=== PATIENT | male | born 1995 | race African-American/Black ===

== ENCOUNTER 2017-11-28 08:14 | Emergency (ER) | payer OTHER, SELFPAY ==
[2017-11-28 08:55] LABS: #Eosinphils 0.7 thou/uL (0.0-0.7); #Lymphocytes 2.7 thou/uL (1.20-3.40); #Monocytes 0.7 thou/uL (0.11-0.59); #Neutrophils 3.7 thou/uL (1.40-6.50); %Basophils 0.4 % (0.0-1.0); %Eosinophils 9.4 % (0.0-10.0); %Monocytes 8.6 % (0.0-10.0); %Neutrophils 47.6 % (42.0-75.0); Hemoglobin 15.3 g/dL (14.0-18.0); Mean Corpuscular Volume 88.4 fL (78.0-98.0); Mean Platelet Volume 6.8 fL (7.4-10.4); Platelet Count 305 thou/uL (130-400); RBC Distribution Width 11.6 % (11.5-14.5); Red Blood Cell (RBC) Count 5.09 mill/uL (4.70-6.10); White Blood Cell (WBC) Count 7.8 thou/uL (4.8-10.8)
[2017-11-28 08:58] LABS: ALT (SGPT) 17 U/L (8-55); AST (SGOT) 15 U/L (5-34); Albumin 4.4 g/dL (3.5-5.0); Alkaline Phosphatase 66 U/L (40-150); Anion Gap 13 mmol/L (10-20); BUN (Urea Nitrogen) 17 mg/dL (8.9-20.6); Bilirubin, Total 0.6 mg/dL (0.2-1.2); Calc. Creatinine Clearance 0 mL/min (70-130); Calcium 9.8 mg/dL (7.8-10.44); Carbon Dioxide 25 mmol/L (22-29); Chloride 104 mmol/L (98-107); Estimated GFR-MDRD Greater than 90; Glucose 95 mg/dL (70-105); Lipase 78 U/L (8-78); Potassium 4.1 mmol/L (3.5-5.1); Protein, Total 7.4 g/dL (6.0-8.3); Sodium 138 mmol/L (136-145)
[2017-11-28 09:14] LABS: Bilirubin Negative (Negative); Blood, Urine Negative (Negative); Clarity CLEAR (Clear); Glucose, Urine (Dipstick) Negative (Negative); Leukocyte Negative (Negative); Nitrite Negative (Negative); Protein, Urine (Dipstick) Negative (Neg-Trace); Specific Gravity, Urine 1.027 (1.002-1.036)
[2017-11-28] MEDS ORDERED: Mag-Al 1200 mg/1200 mg/30 ML UDCUP ONE (09:52)
[2017-11-28] MEDS ORDERED: Lidocaine Viscous Sol 2% 15 ml UD Cup ONE (09:52)
[2017-11-28] MEDS ORDERED: Famotidine 20 MG TAB ONE (09:52)
== END 2017-11-28 09:59 | disposition home or self-care (01) ==
LOC: ERS 08:14
DX: K21.9 Gastro-esophageal reflux disease without esophagitis (principal)
CPT/HCPCS: 36415; 80053; 81003; 83690; 85025; 99284

== ENCOUNTER 2017-12-28 09:42 | Emergency (ER) | payer SELFPAY ==
[2017-12-28 10:19] LABS: Bilirubin Negative (Negative); Blood, Urine Negative (Negative); Clarity CLEAR (Clear); Glucose, Urine (Dipstick) Negative (Negative); Leukocyte Moderate (Negative); Nitrite Negative (Negative); Protein, Urine (Dipstick) Negative (Neg-Trace); Specific Gravity, Urine 1.024 (1.002-1.036); Urobilinogen 0.2 mg/dL (0.2-1.0)
[2017-12-28 10:21] LABS: Bacteria/HPF None Seen HPF (None Seen); Pathc Cast-AUWi Flag 0.72 (0-2.49); RBC/HPF 0-3 HPF (0-3); Squamous Epithelial 0-3 HPF (0-3)
[2017-12-28 10:36] LABS: Hyaline Casts/LPF 0-3 HYALINE CAST LPF (0-3 Hyaline)
[2017-12-28] MEDS ORDERED: cefTRIAXone\\ROCEPHIN 250 MG VIAL ONE (11:09)
[2017-12-28] MEDS ORDERED: Lidocaine 1% PF 5 ML VIAL ONE (11:10)
[2017-12-28] MEDS ORDERED: Azithromycin 250 MG TAB ONE (11:12)
[2017-12-28 22:57] LABS: Chlamydia by PCR Not Detected (NotDetected); GC by PCR Not Detected (NotDetected)
== END 2017-12-28 11:00 | disposition home or self-care (01) ==
LOC: ERS 09:42
DX: A64 Unspecified sexually transmitted disease (principal); J45.909 Unspecified asthma, uncomplicated; F90.9 Attention-deficit hyperactivity disorder, unspecified type
CPT/HCPCS: 81003; 81015; 87491; 87591; 96372; J0696; J2001

== ENCOUNTER 2017-12-31 10:18 | Emergency (ER) | payer SELFPAY ==
[2017-12-31 11:31] LABS: Bilirubin Negative (Negative); Blood, Urine Negative (Negative); Clarity CLOUDY (Clear); Glucose, Urine (Dipstick) Negative (Negative); Leukocyte Small (Negative); Nitrite Negative (Negative); Protein, Urine (Dipstick) Trace mg/dL (Neg-Trace); Specific Gravity, Urine 1.025 (1.002-1.036)
[2017-12-31 11:34] LABS: Bacteria/HPF None Seen HPF (None Seen); Pathc Cast-AUWi Flag 0.29 (0-2.49); RBC/HPF 0-3 HPF (0-3); Squamous Epithelial 0-3 HPF (0-3)
[2017-12-31 11:40] LABS: Hyaline Casts/LPF 0-3 HYALINE CAST LPF (0-3 Hyaline)
[2018-01-02 03:52] LABS: Chlamydia by PCR Not Detected (NotDetected); GC by PCR Not Detected (NotDetected)
== END 2017-12-31 11:45 | disposition home or self-care (01) ==
LOC: ERS 10:18
DX: N34.2 Other urethritis (principal); J45.909 Unspecified asthma, uncomplicated; F90.9 Attention-deficit hyperactivity disorder, unspecified type
CPT/HCPCS: 81003; 81015; 87086; 87491; 87591; 99283

== ENCOUNTER 2018-02-17 15:52 | Emergency (ER) | payer SELFPAY ==
[2018-02-17] MEDS ORDERED: Dexamethasone 4 mg/ml Vial ONE (16:13)
[2018-02-17] MEDS ORDERED: Ibuprofen 100 MG/5 ML UDCUP ONE (16:57)
== END 2018-02-17 17:03 | disposition home or self-care (01) ==
LOC: ERS 15:52
DX: J04.0 Acute laryngitis (principal); J02.9 Acute pharyngitis, unspecified; J45.909 Unspecified asthma, uncomplicated
CPT/HCPCS: 87081; 87430; 99283; J1100

== ENCOUNTER 2018-06-13 11:57 | Emergency (ER) | payer SELFPAY | END 2018-06-13 13:25 | disposition home or self-care (01) | LOC: ERS 11:57 | DX: B36.0 Pityriasis versicolor (principal); F90.9 Attention-deficit hyperactivity disorder, unspecified type; J45.909 Unspecified asthma, uncomplicated | CPT/HCPCS: 99281 ==

== ENCOUNTER 2018-07-14 17:26 | Emergency (ER) | payer SELFPAY | END 2018-07-14 17:57 | disposition home or self-care (01) | LOC: ERS 17:26 | DX: K62.89 Other specified diseases of anus and rectum (principal); J45.909 Unspecified asthma, uncomplicated; F90.9 Attention-deficit hyperactivity disorder, unspecified type | CPT/HCPCS: 99282 ==

== ENCOUNTER 2018-07-26 23:13 | Emergency (ER) | payer SELFPAY ==
[2018-07-26 23:58] LABS: Bilirubin Negative (Negative); Blood, Urine Negative (Negative); Clarity CLEAR (Clear); Glucose, Urine (Dipstick) Negative (Negative); Leukocyte Negative (Negative); Nitrite Negative (Negative); Protein, Urine (Dipstick) Negative (Neg-Trace); Specific Gravity, Urine 1.005 (1.002-1.036); pH, Urine 6.5 (5.0-9.0)
[2018-07-27 00:12] LABS: #Basophils 0.1 thou/uL (0.0-0.2); #Eosinphils 0.4 thou/uL (0.0-0.7); #Lymphocytes 1.9 thou/uL (1.20-3.40); #Monocytes 1.2 thou/uL (0.11-0.59); %Basophils 0.5 % (0.0-1.0); %Eosinophils 2.9 % (0.0-10.0); %Monocytes 9.5 % (0.0-10.0); %Neutrophils 72.1 % (42.0-75.0); Hemoglobin 16.3 g/dL (14.0-18.0); Mean Corpuscular HGB CONC 33.4 g/dL (32.0-36.0); Mean Corpuscular Hemoglobin 29.9 pg (27.0-31.0); Mean Corpuscular Volume 89.6 fL (78.0-98.0); Mean Platelet Volume 7.6 fL (7.4-10.4); Platelet Count 243 thou/uL (130-400); RBC Distribution Width 11.6 % (11.5-14.5); Red Blood Cell (RBC) Count 5.46 mill/uL (4.70-6.10); White Blood Cell (WBC) Count 12.5 thou/uL (4.8-10.8)
[2018-07-27 00:30] LABS: ALT (SGPT) 25 U/L (8-55); AST (SGOT) 28 U/L (5-34); Albumin 4.3 g/dL (3.5-5.0); Alkaline Phosphatase 77 U/L (40-150); Anion Gap 13 mmol/L (10-20); BUN (Urea Nitrogen) 16 mg/dL (8.9-20.6); Bilirubin, Total 0.7 mg/dL (0.2-1.2); Calc. Creatinine Clearance 0 mL/min (70-130); Calcium 9.8 mg/dL (7.8-10.44); Carbon Dioxide 24 mmol/L (22-29); Chloride 105 mmol/L (98-107); Estimated GFR-MDRD 80; Glucose 90 mg/dL (70-105); Potassium 4.2 mmol/L (3.5-5.1); Protein, Total 7.3 g/dL (6.0-8.3); Sodium 138 mmol/L (136-145)
[2018-07-27] MEDS ORDERED: Ibuprofen 200 MG TAB ONE (03:13)
[2018-07-27] MEDS ORDERED: Ondansetron ODT 4 MG TAB ONE (03:13)
== END 2018-07-27 03:58 | disposition home or self-care (01) ==
LOC: ERS 23:13
DX: A63.0 Anogenital (venereal) warts (principal); R11.2 Nausea with vomiting, unspecified; F90.9 Attention-deficit hyperactivity disorder, unspecified type; J45.909 Unspecified asthma, uncomplicated
CPT/HCPCS: 36415; 80053; 81003; 85025; 99284; Q0162

== ENCOUNTER 2018-10-28 07:36 | Emergency (ER) | payer SELFPAY ==
--- NOTE | 2018-10-28 08:22 | RAD ---
EXAM: CHEST ONE VIEW HISTORY: Asthma exacerbation COMPARISON: None FINDINGS: The cardiac silhouette and pulmonary vasculature is within normal limits. The lungs are clear. The os seous structures are intact. There is radiopaque tubing overlying the right chest. IMPRESSION: No acute cardiopulmonary process.
[2018-10-28 08:38] LABS: #Basophils 0.2 thou/uL (0.0-0.2); #Eosinphils 0.6 thou/uL (0.0-0.7); #Lymphocytes 3.7 thou/uL (1.20-3.40); #Monocytes 0.9 thou/uL (0.11-0.59); #Neutrophils 3.2 thou/uL (1.40-6.50); %Basophils 2.3 % (0.0-1.0); %Eosinophils 6.8 % (0.0-10.0); %Lymphocytes 43.3 % (21.0-51.0); %Monocytes 10.8 % (0.0-10.0); %Neutrophils 36.8 % (42.0-75.0); Hemoglobin 16.1 g/dL (14.0-18.0); Mean Corpuscular Hemoglobin 30.2 pg (27.0-31.0); Mean Corpuscular Volume 88.9 fL (78.0-98.0); Platelet Count 223 thou/uL (130-400); RBC Distribution Width 11.6 % (11.5-14.5); Red Blood Cell (RBC) Count 5.32 mill/uL (4.70-6.10); White Blood Cell (WBC) Count 8.6 thou/uL (4.8-10.8)
[2018-10-28 09:02] LABS: ALT (SGPT) 11 U/L (8-55); AST (SGOT) 16 U/L (5-34); Albumin 4.3 g/dL (3.5-5.0); Alkaline Phosphatase 64 U/L (40-150); Anion Gap 13 mmol/L (10-20); BUN (Urea Nitrogen) 19 mg/dL (8.9-20.6); Bilirubin, Total 0.5 mg/dL (0.2-1.2); Calc. Creatinine Clearance 0 mL/min (70-130); Calcium 10.1 mg/dL (7.8-10.44); Carbon Dioxide 27 mmol/L (22-29); Chloride 104 mmol/L (98-107); Estimated GFR-MDRD 80; Globulin 2.6 g/dL (2.4-3.5); Glucose 91 mg/dL (70-105); Lipase 90 U/L (8-78); Potassium 3.5 mmol/L (3.5-5.1); Protein, Total 6.9 g/dL (6.0-8.3); Sodium 140 mmol/L (136-145)
[2018-10-28 09:23] LABS: Bilirubin Negative (Negative); Blood, Urine Negative (Negative); Clarity Clear (Clear); Glucose, Urine (Dipstick) Normal (Negative); Leukocyte Negative Leu/uL (Negative); Nitrite Negative (Negative); Protein, Urine (Dipstick) Negative (Neg-Trace)
== END 2018-10-28 09:57 | disposition home or self-care (01) ==
LOC: ERS 07:36
DX: J45.901 Unspecified asthma with (acute) exacerbation (principal); R10.12 Left upper quadrant pain; F90.9 Attention-deficit hyperactivity disorder, unspecified type
CPT/HCPCS: 36415; 71045; 80053; 81003; 83690; 85025; 94640; J7620

== ENCOUNTER 2019-01-05 02:37 | Emergency (ER) | payer SELFPAY ==
[2019-01-05] MEDS ORDERED: Albuterol Sulfate 2.5 mg/0.5 ml Neb ONE ×2 (03:16)
== END 2019-01-05 03:45 | disposition home or self-care (01) ==
LOC: ERS 02:37
DX: J45.901 Unspecified asthma with (acute) exacerbation (principal)
CPT/HCPCS: 94760; J7611; J7620

== ENCOUNTER 2019-02-04 15:38 | Emergency (ER) | payer SELFPAY ==
[2019-02-04] MEDS ORDERED: Ondansetron ODT 4 MG TAB ONE (17:03)
[2019-02-04] MEDS ORDERED: Bicillin LA 1.2 MILLION UNITS/2 ML SYRINGE ONE (17:05)
== END 2019-02-04 17:30 | disposition home or self-care (01) ==
LOC: ERS 15:38
DX: J02.0 Streptococcal pharyngitis (principal); J45.909 Unspecified asthma, uncomplicated; R11.2 Nausea with vomiting, unspecified; F90.9 Attention-deficit hyperactivity disorder, unspecified type; Z79.51 Long term (current) use of inhaled steroids
CPT/HCPCS: 87430; 87804; 94640; 96372; J0561; J7620; Q0162

== ENCOUNTER 2019-05-05 14:02 | Observation (INO) | payer OTHER, SELFPAY ==
[2019-05-05 14:42] LABS: #Basophils 0.1 thou/uL (0.0-0.2); #Eosinphils 0.4 thou/uL (0.0-0.7); #Lymphocytes 3.4 thou/uL (1.20-3.40); #Monocytes 0.7 thou/uL (0.11-0.59); #Neutrophils 4.2 thou/uL (1.40-6.50); %Basophils 0.6 % (0.0-1.0); %Eosinophils 4.9 % (0.0-10.0); %Lymphocytes 38.2 % (21.0-51.0); %Monocytes 8.4 % (0.0-10.0); %Neutrophils 47.9 % (42.0-75.0); Hemoglobin 15.8 g/dL (14.0-18.0); Mean Corpuscular HGB CONC 33.3 g/dL (32.0-36.0); Mean Corpuscular Hemoglobin 30.2 pg (27.0-31.0); Mean Corpuscular Volume 90.7 fL (78.0-98.0); Mean Platelet Volume 7.9 fL (7.4-10.4); Platelet Count 223 thou/uL (130-400); RBC Distribution Width 12.1 % (11.5-14.5); Red Blood Cell (RBC) Count 5.22 mill/uL (4.70-6.10); White Blood Cell (WBC) Count 8.8 thou/uL (4.8-10.8)
[2019-05-05] MEDS ORDERED: Iopamidol-370 76% 500 ML 1 ML ONE (14:48)
[2019-05-05 15:06] LABS: ALT (SGPT) 19 U/L (8-55); AST (SGOT) 18 U/L (5-34); Albumin 4.3 g/dL (3.5-5.0); Alkaline Phosphatase 53 U/L (40-110); Anion Gap 10 mmol/L (10-20); BUN (Urea Nitrogen) 10 mg/dL (8.9-20.6); Bilirubin, Total 0.7 mg/dL (0.2-1.2); Calc. Creatinine Clearance 0 mL/min (70-130); Calcium 9.1 mg/dL (7.8-10.44); Carbon Dioxide 26 mmol/L (22-29); Chloride 106 mmol/L (98-107); Estimated GFR-MDRD 79; Globulin 2.4 g/dL (2.4-3.5); Glucose 96 mg/dL (70-105); Lipase 260 U/L (8-78); Potassium 4.1 mmol/L (3.5-5.1); Protein, Total 6.7 g/dL (6.0-8.3); Sodium 138 mmol/L (136-145)
[2019-05-05 15:06] LABS: Bilirubin Negative (Negative); Blood, Urine Negative (Negative); Clarity Clear (Clear); Glucose, Urine (Dipstick) Normal (Negative); Leukocyte Negative Leu/uL (Negative); Nitrite Negative (Negative); Protein, Urine (Dipstick) Negative (Neg-Trace); Urobilinogen Normal mg/dL (Less than 2)
[2019-05-05] MEDS ORDERED: Ondansetron PF 4 MG/2 ML Vial ONE (16:52)
[2019-05-05] MEDS ORDERED: Morphine 4 MG/ML VIAL ONE (16:52)
--- NOTE | 2019-05-05 17:38 | CT ---
CT ABDOMEN AND PELVIS WITH IV CONTRAST: 05/05/19 HISTORY: Epigastric pain, abdominal pain. No comparison. The lung bases are clear. Liver, spleen, and pancreas unremarkable. Adrenal glands and kidneys unremarkable. Small bowel loops normal caliber. The appendix appears unremarkable. Prominent stool throughout the c olon. Urinary bladder mildly distended but otherwise unremarkable. No adenopathy, mass, or free fluid . IMPRESSION: No acute abnormality identified. POS: TPC
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
[2019-05-05 20:03] VITALS: BMI 25.9
[2019-05-05] MEDS ORDERED: HYDROcodone/Acetaminophen 5/325 mg Tablet PO PRN ×2 (20:05)
[2019-05-05] MEDS ORDERED: Morphine 4 MG/ML VIAL SLOW IVP PRN (20:05)
[2019-05-05] MEDS ORDERED: Acetaminophen 325 MG TAB PO PRN (20:05)
[2019-05-05] MEDS ORDERED: Ondansetron PF 4 MG/2 ML Vial IVP PRN (20:05)
[2019-05-05] MEDS ORDERED: Ondansetron ODT 4 MG TAB SL PRN (20:05)
[2019-05-05] MEDS: Sodium Chloride 0.9% 1,000 ML IV SCH (20:23)
[2019-05-05] MEDS ORDERED: Morphine 2 MG/ML SYRINGE SLOW IVP PRN (20:40)
--- NOTE | 2019-05-05 22:13 | ULT ---
US Gallbladder RUQ HISTORY: Abdominal pain. Pancreatitis. COMPARISON: CT examination done earlier today. FINDINGS: Real-time imaging of the right upper quadrant shows a normal-appearing gallbladder. The com mon duct is normal in caliber at 3 mm. The liver measures 15 cm in length. Pancreas is obscured. Right kidney is normal in size and not obstructed. IMPRESSION: Unremarkable right upper quadrant ultrasound.
[2019-05-06 00:07] LABS: HIV (1/2) Antibody/Antigen Non-Reactive (NonReactive); HIV 1/2 INDEX 0.08 S/CO (<1.00)
[2019-05-06] MEDS: Sodium Chloride 0.9% 1,000 ML IV SCH (00:54)
[2019-05-06] MEDS: Lactated Ringer's 1,000 ML IV SCH ×2 (04:45→08:25)
[2019-05-06 05:50] LABS: #Basophils 0.1 thou/uL (0.0-0.2); #Eosinphils 0.5 thou/uL (0.0-0.7); #Monocytes 0.9 thou/uL (0.11-0.59); #Neutrophils 3.4 thou/uL (1.40-6.50); %Basophils 0.9 % (0.0-1.0); %Eosinophils 5.9 % (0.0-10.0); %Lymphocytes 38.1 % (21.0-51.0); %Monocytes 11.2 % (0.0-10.0); %Neutrophils 43.9 % (42.0-75.0); Hemoglobin 14.9 g/dL (14.0-18.0); Mean Corpuscular HGB CONC 32.4 g/dL (32.0-36.0); Mean Corpuscular Hemoglobin 29.5 pg (27.0-31.0); Mean Corpuscular Volume 91.1 fL (78.0-98.0); Platelet Count 208 thou/uL (130-400); RBC Distribution Width 11.9 % (11.5-14.5); Red Blood Cell (RBC) Count 5.03 mill/uL (4.70-6.10); White Blood Cell (WBC) Count 7.8 thou/uL (4.8-10.8)
[2019-05-06 06:17] LABS: ALT (SGPT) 16 U/L (8-55); AST (SGOT) 15 U/L (5-34); Albumin 3.6 g/dL (3.5-5.0); Alkaline Phosphatase 45 U/L (40-110); Anion Gap 6 mmol/L (10-20); BUN (Urea Nitrogen) 8 mg/dL (8.9-20.6); Bilirubin, Total 0.7 mg/dL (0.2-1.2); Calc. Creatinine Clearance 124 mL/min (70-130); Calcium 8.2 mg/dL (7.8-10.44); Carbon Dioxide 28 mmol/L (22-29); Cardiac Risk 3.6 (Less than 4.5); Chloride 109 mmol/L (98-107); Cholesterol 143 mg/dl (< 200 Desired); Estimated GFR-MDRD 88; Globulin 2.2 g/dL (2.4-3.5); Glucose 84 mg/dL (70-105); HDL Cholesterol 40 mg/dL (>60 Neg Risk); LDL Cholesterol, Calculated 85 mg/dL; Potassium 4.1 mmol/L (3.5-5.1); Protein, Total 5.8 g/dL (6.0-8.3); Sodium 139 mmol/L (136-145); Triglycerides 88 mg/dL (Less than 150)
[2019-05-06] MEDS ORDERED: Albuterol Sulfate 1.25 MG/3 ML NEB NEB PRN (06:31)
--- NOTE | 2019-05-06 06:32 | PDOC.FM ---
- Subjective Subjective: Feeling better this morning, abdominal pain has decreased but still present. No BM since admission, >2wks total. Denies any alcohol use prior to admission. Tolerating clear liquids. - Objective MAR Reviewed: Yes Vital Signs & Weight: Vital Signs (12 hours) Temp Pulse Resp BP Pulse Ox 05/05/19 20:02 97.7 F 67 20 117/59 L 98 Weight Weight 94.256 kg I&O: 05/04/19 05/05/19 05/06/19 06:59 06:59 06:59 Intake Total 1706 Balance 1706 Result Diagrams: 05/06/19 05:22 05/06/19 05:22 Phys Exam - Physical Examination Constitutional: NAD HEENT: moist MMs Neck: supple mild expiratory wheezing Cardiovascular: RRR, no significant murmur Gastrointestinal: soft Moderate epigastric pain, no rebound or rigidity Neurological: moves all 4 limbs Psychiatric: normal affect, A&O x 3 Skin: normal turgor Dx/Plan - Plan Plan: Pt is a 23 yo male with no significant PMH who presents for Pancreatitis of Unknown Etiology - RUQ, FLP nml - HIV neg - NS 200 mls/hr; could increase as uptodate states 5-10 cc/kg/hr which would put his rate at ~500 mls/hr - Advance to clear liquid diet - LDH pending, [place] score: 0 prior to LDH Constipation - Aggressive bowel regimen as pt has not had BM in 2 weeks Asthma - Albuterol PRN ADHD - No meds DVT ppx: SCDs Fluids: NS 200 mls/hr Diet: NPO Code Status: Full PCP: Dr Villanueva Addendum - Attending - Attending Attestation Date/Time: 05/06/19 1007 I personally evaluated the patient and discussed the management with Dr. New. I agree with the History, Examination, Assessment and Plan documented above with any addition or exceptions noted below. Patient exam, labs, and imaging not really consistent with pancreatitis. He is already tolerating clears. His issue may be more related to constipation. Will continue bowel regimen and see if we can provide relief. Advance diet. Continues on fluids for now. RUQ U/S normal.
[2019-05-06] MEDS ORDERED: Milk Of Magnesia 30 ML UDCUP PO PRN ×2 (07:06→07:19)
[2019-05-06] MEDS ORDERED: Milk Of Magnesia 30 ML UDCUP PO SCH (07:30)
[2019-05-06 07:35] VITALS: BP 125/73; TEMP 97.8
[2019-05-06] MEDS ORDERED: Docusate Sodium 100 MG/10 ML UDCUP PO SCH (09:00)
[2019-05-06] MEDS ORDERED: Docusate 100 MG CAP PO SCH (09:00)
[2019-05-06] MEDS ORDERED: Polyethylene Glycol 3350 17 GM Packet PO SCH (09:00)
[2019-05-06] MEDS ORDERED: FLU VACC QS2019-20(6MOS UP)/PF 60 MCG/0.5 ML SYRINGE IM ONE (09:00)
--- NOTE | 2019-05-08 12:35 | DIS ---
DATE OF ADMISSION: 05/05/2019 DATE OF DISCHARGE: 05/06/2019 PRIMARY CARE PHYSICIAN: Ramy Villanueva MD RESIDENT: Mara New MD, PGY-2. ADMITTING ATTENDING: Crow Flores MD DISCHARGE ATTENDING: Edison Lazo MD CONSULTS: None. PROCEDURES: 1. Abdomen and pelvis CT, no acute abnormality. 2. Abdomen ultrasound 05/05/2019, unremarkable right upper quadrant ultrasound. PRIMARY DIAGNOSIS: Pancreatitis of unknown etiology. SECONDARY DIAGNOSES: 1. Constipation. 2. Asthma. 3. ADHD. DISCHARGE MEDICATIONS: 1. Milk of magnesia 30 mL p.o. daily p.r.n. 2. MiraLAX 17 g p.o. daily. 3. Albuterol 8.5 g inhaled q.6 hours p.r.n. HISTORY OF PRESENT ILLNESS/HOSPITAL COURSE: Mr. Amos is a 23-year-old male with past medical history of asthma, who presented to the ED with epigastric abdominal pain. His CT was negative and his lipase was three times the upper limit of normal at 260. UA was negative. HIV negative. Liver enzymes were normal. He did have a little bit of an ANGELO 1.35, 1.24 creatinine. His Keagan score was zero. Fasting lipid panel was normal. He was made n.p.o. and started on 200 mL an hour of normal saline. He was able to titrate back to regular soft low-fat diet and be taken off normal saline. Recommend he follow up with his primary care doctor, Dr. Villanueva , to further evaluate cause of pancreatitis. He is negative for HIV, any scorpion bite, or new medication. No evidence that was caused by a stone for hypertriglyceridemia. It was thought that it was possibly mild case of pancreatitis and most of the patient's symptoms could have been due to constipation as he has not had bowel movement for greater than two weeks. He has been on aggressive bowel regimen and did have a small bowel movement prior to discharge. He is discharged with Miralax and milk of Mag. DISPOSITION: Stable. DISCHARGE INSTRUCTIONS: 1. Location: Home. 2. Diet: Low-fat, soft foods, advance as tolerated. 3. Activity: No restrictions. 4. Follow up with PCP, Dr. Villanueva within 7 days. Job ID: [id number] [facility]
== END 2019-05-06 14:40 | disposition home or self-care (01) ==
LOC: ERS 14:02 → T4-A 17:38
PROVIDERS: ADMIT Emergency Medicine; ATTEND Emergency Medicine
DX: K85.90 Acute pancreatitis without necrosis or infection, unspecified (principal); K59.00 Constipation, unspecified; J45.909 Unspecified asthma, uncomplicated; F90.9 Attention-deficit hyperactivity disorder, unspecified type
CPT/HCPCS: 36415; 74177; 76705; 80053; 80061; 81003; 83615; 83690; 85025; 87389; 96361; 96374; 96375; 96376; G0378; J2270; J2405; Q9967

== ENCOUNTER 2019-06-09 22:43 | Emergency (ER) | payer OTHER, SELFPAY ==
[2019-06-09 23:04] LABS: Bilirubin Negative (Negative); Blood, Urine Negative (Negative); Clarity Clear (Clear); Glucose, Urine (Dipstick) Normal (Negative); Leukocyte Negative Leu/uL (Negative); Nitrite Negative (Negative); Protein, Urine (Dipstick) 20 mg/dL (Neg-Trace); Urobilinogen 3 mg/dL (Less than 2)
== END 2019-06-10 00:42 | disposition home or self-care (01) ==
LOC: ERS 22:43
DX: R36.9 Urethral discharge, unspecified (principal); R30.0 Dysuria; J45.909 Unspecified asthma, uncomplicated; F90.9 Attention-deficit hyperactivity disorder, unspecified type
CPT/HCPCS: 81003; 87491; 87591; 99281

== ENCOUNTER 2019-06-20 02:43 | Emergency (ER) | payer SELFPAY ==
[2019-06-20 03:09] LABS: #Basophils 0.1 thou/uL (0.0-0.2); #Eosinphils 0.2 thou/uL (0.0-0.7); #Lymphocytes 2.6 thou/uL (1.20-3.40); #Monocytes 1.1 thou/uL (0.11-0.59); #Neutrophils 6.6 thou/uL (1.40-6.50); %Basophils 0.5 % (0.0-1.0); %Eosinophils 1.9 % (0.0-10.0); %Lymphocytes 24.6 % (21.0-51.0); Hemoglobin 16.8 g/dL (14.0-18.0); Mean Corpuscular HGB CONC 33.8 g/dL (32.0-36.0); Mean Corpuscular Hemoglobin 30.2 pg (27.0-31.0); Mean Corpuscular Volume 89.4 fL (78.0-98.0); Mean Platelet Volume 7.5 fL (7.4-10.4); Platelet Count 287 thou/uL (130-400); RBC Distribution Width 11.9 % (11.5-14.5); Red Blood Cell (RBC) Count 5.55 mill/uL (4.70-6.10); White Blood Cell (WBC) Count 10.4 thou/uL (4.8-10.8)
[2019-06-20 03:20] LABS: Bilirubin Small (Negative); Blood, Urine Negative (Negative); Clarity Slightly Cloudy (Clear); Glucose, Urine (Dipstick) Negative (Negative); Leukocyte Trace (Negative); Nitrite Negative (Negative); Protein, Urine (Dipstick) 30 mg/dL (Neg-Trace)
[2019-06-20 03:22] LABS: RBC/HPF 0-3 HPF (0-3); Squamous Epithelial 0-3 HPF (0-3); WBC/HPF 21-50 HPF (0-3)
[2019-06-20 03:23] LABS: Bacteria/HPF 1+ HPF (None Seen)
[2019-06-20 03:31] LABS: ALT (SGPT) 14 U/L (8-55); AST (SGOT) 17 U/L (5-34); Albumin 4.5 g/dL (3.5-5.0); Alkaline Phosphatase 63 U/L (40-110); Anion Gap 12 mmol/L (10-20); BUN (Urea Nitrogen) 15 mg/dL (8.9-20.6); Bilirubin, Total 0.6 mg/dL (0.2-1.2); Calc. Creatinine Clearance 0 mL/min (70-130); Calcium 9.5 mg/dL (7.8-10.44); Carbon Dioxide 24 mmol/L (22-29); Chloride 107 mmol/L (98-107); Estimated GFR-MDRD 79; Globulin 2.9 g/dL (2.4-3.5); Glucose 134 mg/dL (70-105); Lipase 151 U/L (8-78); Potassium 3.4 mmol/L (3.5-5.1); Protein, Total 7.4 g/dL (6.0-8.3); Sodium 140 mmol/L (136-145)
[2019-06-20] MEDS ORDERED: cefTRIAXone\\ROCEPHIN 250 MG VIAL ONE (05:00)
[2019-06-20] MEDS ORDERED: Azithromycin 250 MG TAB ONE ×2 (05:00→05:06)
[2019-06-22 00:54] LABS: Chlam.trachomatis by PCR,Urine Not Detected (NotDetected)
== END 2019-06-20 05:25 | disposition home or self-care (01) ==
LOC: ERS 02:43
DX: N34.2 Other urethritis (principal); F90.9 Attention-deficit hyperactivity disorder, unspecified type
CPT/HCPCS: 36415; 80053; 81003; 81015; 83690; 85025; 87491; 87591; 96372; 99284; J0696

== ENCOUNTER 2019-06-23 19:09 | Emergency (ER) | payer SELFPAY ==
[2019-06-23] MEDS ORDERED: Acetaminophen 500 MG TAB ONE (19:19)
--- NOTE | 2019-06-23 20:02 | RAD ---
Portable chest: HISTORY: Cough COMPARISON: 10/28/2018 FINDINGS: Lung amin are clear. Heart and mediastinum appear unremarkable. Vascularity is normal. Visualized osseous structures unremarkable. IMPRESSION: No acute finding
== END 2019-06-23 21:00 | disposition home or self-care (01) ==
LOC: ERS 19:09
DX: J11.1 Influenza due to unidentified influenza virus with other respiratory manifestations (principal); J45.909 Unspecified asthma, uncomplicated; F90.9 Attention-deficit hyperactivity disorder, unspecified type
CPT/HCPCS: 71045; 87081; 87430; 87804; 96360; 96361

== ENCOUNTER 2020-07-01 21:05 | Inpatient (IN) | payer SELFPAY ==
[2020-07-01] MEDS ORDERED: Acetaminophen 500 MG TAB ONE (21:18)
[2020-07-01] MEDS ORDERED: Dexamethasone 10 MG/ML VIAL ONE (22:23)
[2020-07-01 22:30] LABS: #Lymphocytes 1.4 thou/uL (1.20-3.40); #Monocytes 1.6 thou/uL (0.11-0.59); #Neutrophils 8.9 thou/uL (1.40-6.50); %Basophils 0.4 % (0.0-1.0); %Eosinophils 0.1 % (0.0-10.0); %Lymphocytes 11.4 % (21.0-51.0); %Monocytes 13.5 % (0.0-10.0); %Neutrophils 74.6 % (42.0-75.0); Hemoglobin 14.6 g/dL (14.0-18.0); Mean Corpuscular Hemoglobin 30.2 pg (27.0-31.0); Mean Corpuscular Volume 88.7 fL (78.0-98.0); Mean Platelet Volume 7.5 fL (7.4-10.4); Platelet Count 196 thou/uL (130-400); RBC Distribution Width 11.8 % (11.5-14.5); Red Blood Cell (RBC) Count 4.84 mill/uL (4.70-6.10); White Blood Cell (WBC) Count 11.9 thou/uL (4.8-10.8)
[2020-07-01 22:51] LABS: MONO NEGATIVE CONTROL ZONE White (Negative) (White); MONO POSITIVE CONTROL Pink Line (Positive) (PINK/RED); Mononucleosis NEGATIVE (NEGATIVE)
[2020-07-01 22:52] LABS: Bilirubin Negative (Negative); Blood, Urine Negative (Negative); Clarity Clear (Clear); Glucose, Urine (Dipstick) Normal (Negative); Ketone, Urine Negative (Negative); Leukocyte Negative Leu/uL (Negative); Nitrite Negative (Negative); Protein, Urine (Dipstick) 20 mg/dL (Neg-Trace); Specific Gravity, Urine 1.022 (1.002-1.036); pH, Urine 6.5 (5.0-9.0)
[2020-07-01 22:52] LABS: ALT (SGPT) 30 U/L (8-55); AST (SGOT) 22 U/L (5-34); Albumin 3.9 g/dL (3.5-5.0); Alkaline Phosphatase 64 U/L (40-110); Anion Gap 15 mmol/L (10-20); BUN (Urea Nitrogen) 11 mg/dL (8.9-20.6); Bilirubin, Total 0.8 mg/dL (0.2-1.2); Calc. Creatinine Clearance 0 mL/min (70-130); Calcium 8.6 mg/dL (7.8-10.44); Carbon Dioxide 24 mmol/L (22-29); Chloride 100 mmol/L (98-107); Globulin 2.9 g/dL (2.4-3.5); Glucose 105 mg/dL (70-105); Potassium 3.6 mmol/L (3.5-5.1); Protein, Total 6.8 g/dL (6.0-8.3); Sodium 135 mmol/L (136-145)
[2020-07-01] MEDS ORDERED: Ibuprofen 800 MG TAB ONE (23:04)
[2020-07-02 00:29] VITALS: BMI 26.9
[2020-07-02] MEDS ORDERED: Fluconazole 100 MG TAB PO SCH (02:45)
[2020-07-02 02:51] LABS: HIV (1/2) Antibody/Antigen Non-Reactive (NonReactive); HIV 1/2 INDEX 0.07 S/CO (<1.00)
[2020-07-02 04:10] LABS: SARS-CoV-2 PCR by NAA Not Detected (NotDetected)
[2020-07-02] MEDS: Ampicillin/Sulbactam 1.5 GM in Sodium Chloride 0.9% 100 ML IVPB SCH ×3 (04:22→15:21)
[2020-07-02 05:25] LABS: #Monocytes 0.4 thou/uL (0.11-0.59); #Neutrophils 9.9 thou/uL (1.40-6.50); %Basophils 0.2 % (0.0-1.0); %Eosinophils 0.1 % (0.0-10.0); %Lymphocytes 8.6 % (21.0-51.0); %Monocytes 3.6 % (0.0-10.0); %Neutrophils 87.5 % (42.0-75.0); Hemoglobin 14.9 g/dL (14.0-18.0); Mean Corpuscular Hemoglobin 29.4 pg (27.0-31.0); Mean Corpuscular Volume 89.2 fL (78.0-98.0); Mean Platelet Volume 7.4 fL (7.4-10.4); Platelet Count 200 thou/uL (130-400); RBC Distribution Width 11.7 % (11.5-14.5); Red Blood Cell (RBC) Count 5.05 mill/uL (4.70-6.10); White Blood Cell (WBC) Count 11.3 thou/uL (4.8-10.8)
[2020-07-02 05:43] LABS: Anion Gap 13 mmol/L (10-20); BUN (Urea Nitrogen) 11 mg/dL (8.9-20.6); Calc. Creatinine Clearance 130 mL/min (70-130); Calcium 9.1 mg/dL (7.8-10.44); Carbon Dioxide 24 mmol/L (22-29); Chloride 105 mmol/L (98-107); Glucose 148 mg/dL (70-105); Potassium 4.6 mmol/L (3.5-5.1); Sodium 137 mmol/L (136-145)
[2020-07-02] MEDS: Enoxaparin Sodium 40 MG/0.4 ML SYRINGE SC SCH (08:39)
[2020-07-02] MEDS ORDERED: Prevnar 13-Val Conj/PF 0.5 ML SYRINGE IM ONE (09:00)
[2020-07-02] MEDS: Aluminum & Magnesium Hydroxide 60 ML, diphenhydrAMINE 150 MG, Lidocaine 2% Viscous Solu... SSW PRN ×3 (10:11→20:13)
[2020-07-02 10:53] LABS: Band 20 % (5-11); Hemoglobin 15.2 g/dL (14.0-18.0); Lymphocytes 12 % (21-51); MDiff Complete? YES; Mean Corpuscular HGB CONC 33.8 g/dL (32.0-36.0); Mean Corpuscular Hemoglobin 30.1 pg (27.0-31.0); Mean Corpuscular Volume 89.1 fL (78.0-98.0); Mean Platelet Volume 7.5 fL (7.4-10.4); Monocytes 4 % (0-10); Neutrophil 60 % (42-75); Platelet Count 199 thou/uL (130-400); Platelet Morphology Comment Appears Adequate; RBC Distribution Width 11.8 % (11.5-14.5); RBC Morphology Normal; Reactive Lymphocytes 4 % (0-10); Red Blood Cell (RBC) Count 5.05 mill/uL (4.70-6.10); White Blood Cell (WBC) Count 11.5 thou/uL (4.8-10.8)
[2020-07-02 19:01] LABS: Syphilis Antibody Nonreactive (Nonreactive); Syphilis Antibody Index 0.03 S/CO (<1.00 Non-Reactive)
[2020-07-02] MEDS: Acetaminophen 325 MG TAB PO PRN (20:12)
[2020-07-03] MEDS: Ampicillin/Sulbactam 1.5 GM in Sodium Chloride 0.9% 100 ML IVPB SCH ×3 (02:15→16:05)
[2020-07-03] MEDS: Aluminum & Magnesium Hydroxide 60 ML, diphenhydrAMINE 150 MG, Lidocaine 2% Viscous Solu... SSW PRN ×2 (02:15→09:39)
[2020-07-03] MEDS: Acetaminophen 325 MG TAB PO PRN ×2 (02:15→09:39)
[2020-07-03] MEDS ORDERED: Fluconazole 100 MG TAB PO SCH (09:00)
[2020-07-03] MEDS: Enoxaparin Sodium 40 MG/0.4 ML SYRINGE SC SCH (09:40)
[2020-07-03 15:37] LABS: %CD4 (Helper/Inducer) 29.3 % (30.8-58.5); Absolute CD4 264 /uL (359-1519); Lymphocytes/Gated Cell Count 0.9 x10E3/uL (0.7-3.1); Total Lymphocyte 8 % (Not Estab.); WBC Total Count 11.2 x10E3/uL (3.4-10.8)
[2020-07-03] MEDS: Sodium Chloride 0.9% 1,000 ML IV SCH (16:05)
[2020-07-03] MEDS ORDERED: Ibuprofen 200 MG TAB PO PRN (17:54)
[2020-07-03] MEDS: Ketorolac Tromethamine 30 MG/ML VIAL IVP PRN (20:23)
[2020-07-03] MEDS: Famotidine 20 MG TAB PO SCH (20:24)
[2020-07-03 22:08] LABS: Chlam.trachomatis by PCR,Urine Not Detected (NotDetected)
[2020-07-04] MEDS: Ampicillin/Sulbactam 1.5 GM in Sodium Chloride 0.9% 100 ML IVPB SCH ×3 (02:41→15:08)
[2020-07-04] MEDS: Ketorolac Tromethamine 30 MG/ML VIAL IVP PRN ×4 (02:41→22:02)
[2020-07-04] MEDS: Sodium Chloride 0.9% 1,000 ML IV SCH ×3 (02:44→12:25)
[2020-07-04 06:08] LABS: #Lymphocytes 2.6 thou/uL (1.20-3.40); #Monocytes 1.4 thou/uL (0.11-0.59); #Neutrophils 5.6 thou/uL (1.40-6.50); %Basophils 0.2 % (0.0-1.0); %Eosinophils 0.2 % (0.0-10.0); %Lymphocytes 27.1 % (21.0-51.0); %Neutrophils 58.5 % (42.0-75.0); Hemoglobin 14.4 g/dL (14.0-18.0); Mean Corpuscular HGB CONC 32.9 g/dL (32.0-36.0); Mean Corpuscular Hemoglobin 29.4 pg (27.0-31.0); Mean Corpuscular Volume 89.4 fL (78.0-98.0); Mean Platelet Volume 7.6 fL (7.4-10.4); Platelet Count 207 thou/uL (130-400); RBC Distribution Width 11.5 % (11.5-14.5); Red Blood Cell (RBC) Count 4.91 mill/uL (4.70-6.10); White Blood Cell (WBC) Count 9.6 thou/uL (4.8-10.8)
[2020-07-04 06:29] LABS: Anion Gap 11 mmol/L (10-20); BUN (Urea Nitrogen) 13 mg/dL (8.9-20.6); Calc. Creatinine Clearance 138 mL/min (70-130); Calcium 8.4 mg/dL (7.8-10.44); Carbon Dioxide 25 mmol/L (22-29); Chloride 103 mmol/L (98-107); Glucose 89 mg/dL (70-105); Potassium 3.8 mmol/L (3.5-5.1); Sodium 135 mmol/L (136-145)
[2020-07-04] MEDS: Famotidine 20 MG TAB PO SCH ×2 (09:11→20:19)
[2020-07-04] MEDS ORDERED: valACYclovir 500 MG TAB PO SCH (10:45)
[2020-07-04 11:12] LABS: EBV VCA IgM <36.0 U/mL (0.0-35.9)
[2020-07-04 12:13] LABS: HIV-1 Quantitative, RNA PCR <20 copies/mL (.)
[2020-07-04] MEDS: valACYclovir 500 MG TAB PO SCH ×2 (15:07→20:20)
[2020-07-04] MEDS: Amoxicillin/Potassium Clav 875 MG TAB PO SCH (20:20)
[2020-07-05] MEDS: Sodium Chloride 0.9% 1,000 ML IV SCH (03:09)
[2020-07-05] MEDS: Ketorolac Tromethamine 30 MG/ML VIAL IVP PRN (04:24)
[2020-07-05] MEDS: Famotidine 20 MG TAB PO SCH (09:59)
[2020-07-05] MEDS: valACYclovir 500 MG TAB PO SCH (09:59)
[2020-07-05] MEDS: Amoxicillin/Potassium Clav 875 MG TAB PO SCH (09:59)
[2020-07-05 10:31] VITALS: BP 120/75; TEMP 98
== END 2020-07-05 10:55 | disposition home or self-care (01) | DRG 872 ==
LOC: ERS 21:05 → ONC 23:10 → OBSVTOIN 07-03 08:08
PROVIDERS: ADMIT Student in an Organized Health Care Education/Training Program; ATTEND Internal Medicine
DX: A41.9 Sepsis, unspecified organism (principal); E87.1 Hypo-osmolality and hyponatremia; J02.9 Acute pharyngitis, unspecified; D72.810 Lymphocytopenia; J45.20 Mild intermittent asthma, uncomplicated; F12.11 Cannabis abuse, in remission; R59.0 Localized enlarged lymph nodes; Z20.822 Contact with and (suspected) exposure to COVID-19
CPT/HCPCS: 36415; 70491; 71045; 80048; 80053; 81003; 85025; 85048; 85060; 86140; 86308; 86361; 86664; 86665; 86780; 87040; 87070; 87081; 87086; 87389; 87430; 87491; 87529; 87536; 87591; 87635; 87880; 96365; 96366; 96372; 96374; 96375; 96376; G0378; J0295; J1100; J1650; J1885; J3490; Q0163; U0003; U0005

== ENCOUNTER 2021-05-02 12:18 | Emergency (ER) | payer SELFPAY ==
[2021-05-02] MEDS ORDERED: Ketorolac Tromethamine 30 MG/ML VIAL ONE (13:17)
[2021-05-02 13:29] LABS: #Eosinphils 0.2 thou/uL (0.0-0.7); #Lymphocytes 2.1 thou/uL (1.20-3.40); #Monocytes 0.8 thou/uL (0.11-0.59); #Neutrophils 5.4 thou/uL (1.40-6.50); %Basophils 0.3 % (0.0-1.0); %Eosinophils 2.4 % (0.0-10.0); %Lymphocytes 24.7 % (21.0-51.0); %Monocytes 9.1 % (0.0-10.0); %Neutrophils 63.5 % (42.0-75.0); Hemoglobin 16.4 g/dL (14.0-18.0); Mean Corpuscular HGB CONC 34.8 g/dL (32.0-36.0); Mean Corpuscular Hemoglobin 30.8 pg (27.0-31.0); Mean Corpuscular Volume 88.4 fL (78.0-98.0); Mean Platelet Volume 6.8 fL (7.4-10.4); Platelet Count 260 thou/uL (130-400); RBC Distribution Width 11.7 % (11.5-14.5); Red Blood Cell (RBC) Count 5.34 mill/uL (4.70-6.10); White Blood Cell (WBC) Count 8.5 thou/uL (4.8-10.8)
[2021-05-02 13:50] LABS: ALT (SGPT) 32 U/L (8-55); AST (SGOT) 22 U/L (5-34); Albumin 4.2 g/dL (3.5-5.0); Alkaline Phosphatase 85 U/L (40-110); Anion Gap 12 mmol/L (10-20); BUN (Urea Nitrogen) 11 mg/dL (8.9-20.6); Bilirubin, Total 0.7 mg/dL (0.2-1.2); Calc. Creatinine Clearance 0 mL/min (70-130); Calcium 9.5 mg/dL (7.8-10.44); Carbon Dioxide 25 mmol/L (22-29); Chloride 105 mmol/L (98-107); Globulin 3.5 g/dL (2.4-3.5); Glucose 98 mg/dL (70-105); Potassium 3.7 mmol/L (3.5-5.1); Protein, Total 7.7 g/dL (6.0-8.3); Sodium 138 mmol/L (136-145)
[2021-05-02 13:51] LABS: Bilirubin Negative (Negative); Blood, Urine Negative (Negative); Clarity Clear (Clear); Glucose, Urine (Dipstick) Normal (Negative); Ketone, Urine Negative (Negative); Leukocyte Negative Leu/uL (Negative); Nitrite Negative (Negative); Protein, Urine (Dipstick) 10 mg/dL (Neg-Trace); Specific Gravity, Urine 1.025 (1.002-1.036); Urobilinogen Normal mg/dL (Less than 2)
[2021-05-02 15:40] LABS: Syphilis Antibody Nonreactive (Nonreactive); Syphilis Antibody Index 0.06 S/CO (<1.00 Non-Reactive)
[2021-05-06 09:25] LABS: Chlam.trachomatis by PCR,Urine Not Detected (NotDetected)
== END 2021-05-02 15:27 | disposition home or self-care (01) ==
LOC: ERS 12:18
DX: R59.0 Localized enlarged lymph nodes (principal)
CPT/HCPCS: 36415; 80053; 81003; 85025; 86780; 87491; 87591; 94760; 96374; J1885

== ENCOUNTER 2021-11-27 15:40 | Observation (INO) | payer SELFPAY ==
[~2021-11-27 15:40] MED LIST: Iopamidol-370 76% 500 ML 1 ML ONE
[2021-11-27] MEDS ORDERED: Acetaminophen 500 MG TAB ONE (16:28)
[2021-11-27 17:01] LABS: #Eosinphils 0.2 thou/uL (0.0-0.7); #Lymphocytes 1.9 thou/uL (1.20-3.40); #Monocytes 1.3 thou/uL (0.11-0.59); #Neutrophils 11.8 thou/uL (1.40-6.50); %Basophils 0.2 % (0.0-1.0); %Lymphocytes 12.6 % (21.0-51.0); %Monocytes 8.8 % (0.0-10.0); %Neutrophils 77.5 % (42.0-75.0); Hemoglobin 15.9 g/dL (14.0-18.0); Mean Corpuscular HGB CONC 33.7 g/dL (32.0-36.0); Mean Corpuscular Hemoglobin 29.8 pg (27.0-31.0); Mean Corpuscular Volume 88.4 fL (78.0-98.0); Mean Platelet Volume 7.6 fL (7.4-10.4); Platelet Count 229 thou/uL (130-400); Red Blood Cell (RBC) Count 5.33 mill/uL (4.70-6.10); White Blood Cell (WBC) Count 15.2 thou/uL (4.8-10.8)
[2021-11-27 17:32] LABS: ALT (SGPT) 27 U/L (8-55); AST (SGOT) 22 U/L (5-34); Albumin 4.4 g/dL (3.5-5.0); Alkaline Phosphatase 69 U/L (40-110); Anion Gap 14 mmol/L (10-20); BUN (Urea Nitrogen) 12 mg/dL (8.9-20.6); Bilirubin, Total 1.1 mg/dL (0.2-1.2); Calc. Creatinine Clearance 0 mL/min (70-130); Calcium 10.1 mg/dL (7.8-10.44); Carbon Dioxide 24 mmol/L (22-29); Chloride 101 mmol/L (98-107); Estimated GFR 75; Globulin 2.9 g/dL (2.4-3.5); Glucose 103 mg/dL (70-105); Lipase 20 U/L (8-78); Potassium 3.8 mmol/L (3.5-5.1); Protein, Total 7.3 g/dL (6.0-8.3); Sodium 135 mmol/L (136-145)
[2021-11-27] MEDS ORDERED: Promethazine HCl 12.5 MG in Sodium Chloride 0.9% 50 ML IVPB SCH (17:45)
[2021-11-27] MEDS ORDERED: Morphine 4 MG/ML VIAL ONE ×3 (18:43→22:06)
[2021-11-27] MEDS ORDERED: Ondansetron PF 4 MG/2 ML Vial ONE ×2 (18:43→20:32)
[2021-11-27] MEDS ORDERED: Piperacillin/Tazobactam 4.5 GM VIAL ONE (18:44)
[2021-11-27 18:55] LABS: Bilirubin Negative (Negative); Blood, Urine Negative (Negative); Clarity Clear (Clear); Glucose, Urine (Dipstick) Normal (Negative); Ketone, Urine Negative (Negative); Leukocyte Negative Leu/uL (Negative); Nitrite Negative (Negative); Protein, Urine (Dipstick) 10 mg/dL (Neg-Trace); Urobilinogen Normal mg/dL (Less than 2)
[2021-11-27 18:56] LABS: Specific Gravity, Urine Greater than 1.060 (1.002-1.036)
[2021-11-27 19:01] LABS: Amphetamine Not Detected (NotDetected); Barbiturates Screen Not Detected (NotDetected); Benzodiazepine Screen Not Detected (NotDetected); Cocaine Metabolite Screen Not Detected (NotDetected); Methadone Not Detected (NotDetected); Methamphetamine Not Detected (NotDetected); Opiate Screen Not Detected (NotDetected); Oxycodone Screen Not Detected (NotDetected); Phencyclidine (PCP) Not Detected (NotDetected); THC/Cannabinoid Screen Not Detected (NotDetected); Tricyclic Screen Not Detected (NotDetected)
[2021-11-27 20:21] LABS: SARS-CoV-2 NAA Rapid Test Not Detected (NotDetected)
[2021-11-27] MEDS ORDERED: Morphine 4 MG/ML VIAL SLOW IVP PRN (22:22)
[2021-11-27] MEDS ORDERED: Ondansetron PF 4 MG/2 ML Vial IVP PRN (22:30)
[2021-11-27] MEDS ORDERED: Ondansetron ODT 4 MG TAB SL PRN (22:30)
[2021-11-27 23:21] VITALS: BMI 25.7
[2021-11-28] MEDS ORDERED: Piperacillin/Tazobactam 4.5 GM in Sodium Chloride 0.9% 100 ML IVPB SCH (04:00)
[2021-11-28] MEDS: Sodium Chloride 0.9% 1,000 ML IV SCH ×2 (04:24→15:07)
[2021-11-28] MEDS: Morphine 4 MG/ML VIAL SLOW IVP PRN ×2 (04:26→07:27)
[2021-11-28 06:31] LABS: #Eosinphils 0.1 thou/uL (0.0-0.7); #Lymphocytes 2.1 thou/uL (1.20-3.40); #Monocytes 1.4 thou/uL (0.11-0.59); #Neutrophils 12.5 thou/uL (1.40-6.50); %Basophils 0.1 % (0.0-1.0); %Eosinophils 0.9 % (0.0-10.0); %Lymphocytes 12.8 % (21.0-51.0); %Neutrophils 77.3 % (42.0-75.0); Hemoglobin 14.5 g/dL (14.0-18.0); Mean Corpuscular HGB CONC 33.1 g/dL (32.0-36.0); Mean Corpuscular Hemoglobin 29.6 pg (27.0-31.0); Mean Corpuscular Volume 89.6 fL (78.0-98.0); Mean Platelet Volume 7.8 fL (7.4-10.4); Platelet Count 220 thou/uL (130-400); White Blood Cell (WBC) Count 16.1 thou/uL (4.8-10.8)
[2021-11-28 06:48] LABS: Anion Gap 16 mmol/L (10-20); BUN (Urea Nitrogen) 12 mg/dL (8.9-20.6); Calc. Creatinine Clearance 111 mL/min (70-130); Calcium 9.2 mg/dL (7.8-10.44); Carbon Dioxide 22 mmol/L (22-29); Chloride 104 mmol/L (98-107); Estimated GFR 75; Glucose 95 mg/dL (70-105); Potassium 3.8 mmol/L (3.5-5.1); Sodium 138 mmol/L (136-145)
[2021-11-28] MEDS ORDERED: Chloraseptic Spray 180 ml Bottle PO PRN (09:49)
[2021-11-28] MEDS ORDERED: Bupivacaine/Epinephrine 0.25% 30 ML VIAL ONE (12:06)
[2021-11-28] MEDS ORDERED: Famotidine/PF 20 mg/2ml Vial ONE (12:09)
[2021-11-28] MEDS ORDERED: fentaNYL Citrate/PF 100 MCG/2 ML SYRINGE ONE (12:09)
[2021-11-28] MEDS ORDERED: Neostigmine Methylsulfate 3 MG/3 ML SYRINGE ONE (12:30)
[2021-11-28] MEDS ORDERED: PROPOFOL 200 MG/20 ML VIAL ONE (12:30)
[2021-11-28] MEDS ORDERED: Rocuronium Bromide 10 MG/ML (10ML VIAL) ONE (12:30)
[2021-11-28] MEDS ORDERED: Glycopyrrolate 0.2 MG/ML 5 ML SYRINGE ONE (12:30)
[2021-11-28] MEDS ORDERED: Lidocaine 1% PF 5 ML VIAL ONE (12:30)
[2021-11-28] MEDS ORDERED: Ketorolac Tromethamine 30 MG/ML VIAL ONE (12:30)
[2021-11-28] MEDS ORDERED: Dexamethasone 20 MG/5 ML VIAL ONE (12:30)
[2021-11-28] MEDS ORDERED: Ondansetron PF 4 MG/2 ML Vial ONE (12:30)
[2021-11-28] MEDS ORDERED: Succinylcholine 200 MG/10 ml SYRINGE FS ONE (12:30)
[2021-11-28] MEDS ORDERED: Promethazine HCl 25 MG/ML VIAL IVPB PRN (12:58)
[2021-11-28] MEDS ORDERED: HYDROmorphone 2 MG/ML VIAL SLOW IVP PRN (12:58)
[2021-11-28] MEDS ORDERED: Meperidine HCl/PF 25 MG/ML VIAL SLOW IVP PRN (12:58)
[2021-11-28] MEDS ORDERED: traMADol HCl 50 MG TAB PO PRN (13:36)
[2021-11-28] MEDS ORDERED: Ibuprofen 200 MG TAB PO PRN (13:36)
[2021-11-28] MEDS ORDERED: traMADol HCl 50 MG TAB PO SCH (14:00)
[2021-11-28] MEDS ORDERED: Acetaminophen 500 MG TAB PO SCH (14:00)
[2021-11-28 20:28] VITALS: BP 130/74; TEMP 98
== END 2021-11-28 20:00 | disposition home or self-care (01) ==
LOC: ERS 15:40 → SJJU 21:47
PROVIDERS: ADMIT Surgery; ATTEND Surgery
PROC: 0DTJ4ZZ Resection of Appendix, Percutaneous Endoscopic Approach (ICD-10-PCS; principal; 2021-11-28)
DX: K35.80 Unspecified acute appendicitis (principal); N17.9 Acute kidney failure, unspecified; K66.0 Peritoneal adhesions (postprocedural) (postinfection); J45.909 Unspecified asthma, uncomplicated; Z20.822 Contact with and (suspected) exposure to COVID-19
CPT/HCPCS: 36415; 74177; 80048; 80053; 80306; 81003; 83690; 85025; 86850; 86900; 86901; 87081; 87430; 88304; 96374; 96375; 96376; G0378; J1100; J1885; J2270; J2405; J2543; J2550; J2704; J3490; J7050; Q9967; S0028; U0002

== ENCOUNTER 2021-12-05 10:47 | Emergency (ER) | payer SELFPAY ==
[2021-12-05] MEDS ORDERED: Ondansetron PF 4 MG/2 ML Vial ONE (11:41)
[2021-12-05] MEDS ORDERED: Morphine 4 MG/ML VIAL ONE (11:41)
[2021-12-05 11:42] LABS: #Basophils 0.1 thou/uL (0.0-0.2); #Eosinphils 0.2 thou/uL (0.0-0.7); #Lymphocytes 2.1 thou/uL (1.20-3.40); #Monocytes 1.1 thou/uL (0.11-0.59); #Neutrophils 7.6 thou/uL (1.40-6.50); %Basophils 0.5 % (0.0-1.0); %Eosinophils 1.6 % (0.0-10.0); %Monocytes 10.1 % (0.0-10.0); %Neutrophils 68.8 % (42.0-75.0); Hemoglobin 15.3 g/dL (14.0-18.0); Mean Corpuscular HGB CONC 32.6 g/dL (32.0-36.0); Mean Corpuscular Hemoglobin 29.5 pg (27.0-31.0); Mean Corpuscular Volume 90.4 fL (78.0-98.0); Mean Platelet Volume 7.3 fL (7.4-10.4); Platelet Count 301 thou/uL (130-400); RBC Distribution Width 11.6 % (11.5-14.5); White Blood Cell (WBC) Count 11.1 thou/uL (4.8-10.8)
[2021-12-05 11:57] LABS: ALT (SGPT) 46 U/L (8-55); AST (SGOT) 24 U/L (5-34); Albumin 4.2 g/dL (3.5-5.0); Alkaline Phosphatase 80 U/L (40-110); Anion Gap 17 mmol/L (10-20); BUN (Urea Nitrogen) 16 mg/dL (8.9-20.6); Bilirubin, Total 0.7 mg/dL (0.2-1.2); Calc. Creatinine Clearance 0 mL/min (70-130); Calcium 9.7 mg/dL (7.8-10.44); Carbon Dioxide 22 mmol/L (22-29); Chloride 99 mmol/L (98-107); Estimated GFR 80; Globulin 3.5 g/dL (2.4-3.5); Glucose 91 mg/dL (70-105); Lipase 88 U/L (8-78); Potassium 4.2 mmol/L (3.5-5.1); Protein, Total 7.7 g/dL (6.0-8.3); Sodium 134 mmol/L (136-145)
[2021-12-05] MEDS ORDERED: GASTROGRAFIN 30 ML BOT ONE (14:40)
[2021-12-05] MEDS ORDERED: Iopamidol-370 76% 500 ML 1 ML ONE (14:40)
== END 2021-12-05 14:51 | disposition home or self-care (01) ==
LOC: ERS 10:47
DX: G89.18 Other acute postprocedural pain (principal); R10.11 Right upper quadrant pain; R10.31 Right lower quadrant pain; R11.2 Nausea with vomiting, unspecified; J45.909 Unspecified asthma, uncomplicated; Z79.899 Other long term (current) drug therapy
CPT/HCPCS: 36415; 74177; 80053; 83690; 85025; 96361; 96374; 96375; J2270; J2405; Q9963; Q9967

== ENCOUNTER 2021-12-16 10:37 | Emergency (ER) | payer SELFPAY ==
[2021-12-16] MEDS ORDERED: Morphine 4 MG/ML VIAL ONE (11:26)
[2021-12-16] MEDS ORDERED: Ondansetron PF 4 MG/2 ML Vial ONE (11:26)
[2021-12-16 11:28] LABS: Hemoglobin 13.4 g/dL (14.0-18.0); Mean Corpuscular HGB CONC 33.3 g/dL (32.0-36.0); Mean Corpuscular Hemoglobin 30.2 pg (27.0-31.0); Mean Corpuscular Volume 90.6 fL (78.0-98.0); Mean Platelet Volume 7.8 fL (7.4-10.4); Platelet Count 259 thou/uL (130-400); RBC Distribution Width 11.7 % (11.5-14.5); Red Blood Cell (RBC) Count 4.44 mill/uL (4.70-6.10); White Blood Cell (WBC) Count 7.4 thou/uL (4.8-10.8)
[2021-12-16 11:51] LABS: ALT (SGPT) 50 U/L (8-55); AST (SGOT) 26 U/L (5-34); Albumin 3.7 g/dL (3.5-5.0); Alkaline Phosphatase 78 U/L (40-110); Anion Gap 13 mmol/L (10-20); BUN (Urea Nitrogen) 9 mg/dL (8.9-20.6); Bilirubin, Total 0.4 mg/dL (0.2-1.2); Calcium 8.9 mg/dL (7.8-10.44); Carbon Dioxide 21 mmol/L (22-29); Chloride 104 mmol/L (98-107); Globulin 3.1 g/dL (2.4-3.5); Glucose 111 mg/dL (70-105); Lipase 40 U/L (8-78); Potassium 3.5 mmol/L (3.5-5.1); Protein, Total 6.8 g/dL (6.0-8.3); Sodium 134 mmol/L (136-145)
[2021-12-16] MEDS ORDERED: Ketorolac Tromethamine 30 MG/ML VIAL ONE (12:01)
[2021-12-16 12:31] LABS: Band 15 % (5-11); Eosinophils 1 % (0-10); Lymphocytes 19 % (21-51); MDiff Complete? YES; Monocytes 7 % (0-10); Neutrophil 55 % (42-75); RBC Morphology Normal; Reactive Lymphocytes 3 % (0-10)
[2021-12-16 12:33] LABS: Calc. Creatinine Clearance 0 mL/min (70-130); Estimated GFR 75
[2021-12-16 13:30] LABS: SARS-CoV-2 NAA Rapid Test DETECTED (NotDetected)
== END 2021-12-16 13:57 | disposition home or self-care (01) ==
LOC: ERS 10:37
DX: U07.1 COVID-19 (principal)
CPT/HCPCS: 36415; 74177; 80053; 83605; 83690; 85025; 87040; 87081; 87430; 94760; 96361; 96374; 96375; J1885; J2270; J2405; Q9967

== ENCOUNTER 2022-04-22 13:43 | Emergency (ER) | payer SELFPAY ==
[2022-04-22] MEDS ORDERED: Acetaminophen 500 MG TAB ONE (17:43)
[2022-04-22] MEDS ORDERED: Dexamethasone 10 MG/ML VIAL ONE (17:44)
[2022-04-22] MEDS ORDERED: Bicillin LA 1.2 MILLION UNITS/2 ML SYRINGE ONE (17:53)
== END 2022-04-22 18:21 | disposition home or self-care (01) ==
LOC: ERS 13:43
DX: J02.0 Streptococcal pharyngitis (principal)
CPT/HCPCS: 87430; 96372; 99283; J0561; J1100

== ENCOUNTER 2022-07-01 16:34 | Emergency (ER) | payer SELFPAY ==
[2022-07-01 17:56] LABS: Bilirubin Negative (Negative); Blood, Urine Negative (Negative); Glucose, Urine (Dipstick) Negative (Negative); Ketone, Urine Negative (Negative); Leukocyte Negative (Negative); Nitrite Negative (Negative); Protein, Urine (Dipstick) Negative (Neg-Trace); Specific Gravity, Urine 1.025 (1.005-1.030); Urobilinogen 0.2 mg/dL (Less than 2); pH, Urine 6.5 (5.0-9.0)
[2022-07-01 18:06] LABS: Amphetamine Not Detected (NotDetected); Barbiturates Screen Not Detected (NotDetected); Benzodiazepine Screen Not Detected (NotDetected); Cocaine Metabolite Screen Not Detected (NotDetected); Methadone Not Detected (NotDetected); Methamphetamine Not Detected (NotDetected); Opiate Screen Not Detected (NotDetected); Oxycodone Screen Not Detected (NotDetected); Phencyclidine (PCP) Not Detected (NotDetected); THC/Cannabinoid Screen Detected (NotDetected); Tricyclic Screen Not Detected (NotDetected)
[2022-07-01 18:14] LABS: #Eosinphils 0.3 thou/uL (0.0-0.7); #Lymphocytes 2.1 thou/uL (1.20-3.40); #Monocytes 0.7 thou/uL (0.11-0.59); #Neutrophils 5.2 thou/uL (1.40-6.50); %Basophils 0.1 % (0.0-1.0); %Lymphocytes 24.9 % (21.0-51.0); %Monocytes 8.4 % (0.0-10.0); %Neutrophils 62.6 % (42.0-75.0); Hemoglobin 15.9 g/dL (14.0-18.0); Mean Corpuscular HGB CONC 33.8 g/dL (32.0-36.0); Mean Corpuscular Hemoglobin 30.3 pg (27.0-31.0); Mean Corpuscular Volume 89.5 fl (78.0-98.0); Mean Platelet Volume 7.7 fL (7.4-10.4); Platelet Count 223 10x3/uL (130-400); RBC Distribution Width 11.7 % (11.5-14.5); Red Blood Cell (RBC) Count 5.26 mill/uL (4.70-6.10); White Blood Cell (WBC) Count 8.3 10x3/uL (4.8-10.8)
[2022-07-01 18:34] LABS: ALT (SGPT) 21 U/L (8-55); AST (SGOT) 19 U/L (5-34); Albumin 4.2 g/dL (3.5-5.0); Alkaline Phosphatase 60 U/L (40-110); Anion Gap 13 mmol/L (10-20); BUN (Urea Nitrogen) 14 mg/dL (8.9-20.6); Bilirubin, Total 0.5 mg/dL (0.2-1.2); Calc. Creatinine Clearance 0 mL/min (70-130); Calcium 9.3 mg/dL (7.8-10.44); Carbon Dioxide 24 mmol/L (22-29); Chloride 105 mmol/L (98-107); Estimated GFR 76; Glucose 83 mg/dL (70-105); Potassium 3.7 mmol/L (3.5-5.1); Protein, Total 7.2 g/dL (6.0-8.3); Sodium 138 mmol/L (136-145)
[2022-07-01 18:35] LABS: Acetaminophen Less than 10.0 mcg/mL (10.0-30.0); Alcohol Less than 10 mg/dL (Less than 10); Salicylate Less than 8.0 mg/dL (15.0-30.0)
[2022-07-01 18:36] LABS: Clarity Clear (Clear); RBC/HPF 0-3 HPF (0-3); WBC/HPF 0-3 HPF (0-3)
[2022-07-02] MEDS ORDERED: Acetaminophen 500 MG TAB ONE (04:58)
[2022-07-02] MEDS ORDERED: FLUoxetine HCl 20 MG CAP PO SCH (07:45)
[2022-07-02] MEDS ORDERED: Ibuprofen 200 MG TAB ONE (10:37)
[2022-07-02 11:59] LABS: Chlam.trachomatis by PCR,Urine Not Detected (NotDetected); GC N.gonorrhoeae PCR,UrineVOID Not Detected (NotDetected)
[2022-07-03] MEDS ORDERED: FLUoxetine HCl 20 MG CAP PO SCH (12:15)
[2022-07-04] MEDS ORDERED: FLUoxetine HCl 20 MG CAP PO SCH (09:00)
== END 2022-07-03 15:17 | disposition home or self-care (01) ==
LOC: ERS 16:34
DX: F32.9 Major depressive disorder, single episode, unspecified (principal)
CPT/HCPCS: 36415; 80053; 80306; 80307; 81003; 84443; 85025; 87491; 87591; 93005

== ENCOUNTER 2022-08-06 14:09 | Emergency (ER) | payer SELFPAY ==
[2022-08-06 16:09] LABS: Bilirubin Negative (Negative); Blood, Urine Negative (Negative); Clarity Clear (Clear); Glucose, Urine (Dipstick) Normal (Negative); Ketone, Urine Negative (Negative); Leukocyte Negative Leu/uL (Negative); Nitrite Negative (Negative); Protein, Urine (Dipstick) Negative (Neg-Trace); Specific Gravity, Urine 1.026 (1.002-1.036); Urobilinogen Normal mg/dL (Less than 2)
== END 2022-08-06 16:03 | disposition home or self-care (01) ==
LOC: ERS 14:09
DX: L02.214 Cutaneous abscess of groin (principal); J45.909 Unspecified asthma, uncomplicated
CPT/HCPCS: 81003; 99283

== ENCOUNTER 2022-10-31 16:14 | Emergency (ER) | payer SELFPAY | END 2022-10-31 18:40 | disposition home or self-care (01) | LOC: ERS 16:14 | DX: K64.4 Residual hemorrhoidal skin tags (principal); J45.909 Unspecified asthma, uncomplicated; Z79.51 Long term (current) use of inhaled steroids | CPT/HCPCS: 99282 ==

== ENCOUNTER 2023-10-20 16:06 | Emergency (ER) | payer SELFPAY ==
[2023-10-20] MEDS ORDERED: Lidocaine 1% PF 5 ML VIAL ONE (16:43)
[2023-10-20] MEDS ORDERED: cefTRIAXone (ROCEPHIN) 500 MG VIAL ONE (16:43)
[2023-10-20 18:11] LABS: HIV (1/2) Antibody/Antigen NONREACTIVE (NonReactive); HIV 1/2 INDEX 0.06 S/CO (<1.00)
== END 2023-10-20 17:21 | disposition home or self-care (01) ==
LOC: ERS 16:06
DX: R36.9 Urethral discharge, unspecified (principal); F41.9 Anxiety disorder, unspecified; F32.A Depression, unspecified; Z79.899 Other long term (current) drug therapy; Z20.818 Contact with and (suspected) exposure to other bacterial communicable diseases
CPT/HCPCS: 36415; 87389; 96372; 99283; J0696

== ENCOUNTER 2024-03-22 13:07 | Emergency (ER) | payer SELFPAY ==
[2024-03-22 14:41] LABS: Bacteria/HPF None Seen HPF (None Seen); Bilirubin Negative (Negative); Blood, Urine Negative (Negative); CAUTI Indications for Culture Dysuria,urgency,freq; Clarity Clear (Clear); Glucose, Urine (Dipstick) Normal (Negative); Ketone, Urine Negative (Negative); Leukocyte Negative Leu/uL (Negative); Nitrite Negative (Negative); Protein, Urine (Dipstick) Negative (Neg-Trace); RBC/HPF 0-3 HPF (0-3); Specific Gravity, Urine 1.024 (1.002-1.036); Squamous Epithelial None Seen HPF (0-3); Urobilinogen Normal mg/dL (Less than 2); WBC/HPF 0-3 HPF (0-3); pH, Urine 6.5 (5.0-9.0)
[2024-03-22 14:55] LABS: Urine Culture Reflex No No
[2024-03-22] MEDS ORDERED: cefTRIAXone (ROCEPHIN) 500 MG VIAL ONE (15:35)
[2024-03-22] MEDS ORDERED: Lidocaine 1% MPF 2 ML VIAL ONE (15:35)
[2024-03-23 01:40] LABS: Chlam.trachomatis by PCR,Urine DETECTED (NotDetected); GC N.gonorrhoeae PCR,UrineVOID Not Detected (NotDetected)
== END 2024-03-22 16:11 | disposition home or self-care (01) ==
LOC: ERS 13:07
DX: Z20.2 Contact with and (suspected) exposure to infections with a predominantly sexual mode of transmission (principal)
CPT/HCPCS: 81001; 87491; 87591; 96372; 99283; J0696

== ENCOUNTER 2024-12-06 12:32 | Emergency (ER) | payer SELFPAY ==
[2024-12-06 14:45] LABS: Bacteria/HPF None Seen HPF (None Seen); CAUTI Indications for Culture Pelvic or flank pain; Glucose, Urine (Dipstick) Normal (Negative); Leukocyte 250 Leu/uL (Negative); Protein, Urine (Dipstick) Negative (Neg-Trace); RBC/HPF 0-3 HPF (0-3); Specific Gravity, Urine 1.031 (1.002-1.036)
[2024-12-06 14:49] LABS: Urine Culture Reflex Yes Yes
[2024-12-06] MEDS ORDERED: cefTRIAXone (ROCEPHIN) 500 MG VIAL ONE (15:10)
[2024-12-07 04:43] LABS: Chlam.trachomatis by PCR,Urine Not Detected (NotDetected); GC N.gonorrhoeae PCR,UrineVOID Not Detected (NotDetected)
== END 2024-12-06 15:21 | disposition home or self-care (01) ==
LOC: ERS 12:32
DX: N39.0 Urinary tract infection, site not specified (principal); R36.9 Urethral discharge, unspecified
CPT/HCPCS: 81001; 87086; 87491; 87591; 96372; 99283; J0696